=== PATIENT | male | born 1995 | race Caucasian/White ===

== ENCOUNTER → 2017-09-30 | Outpatient (CLI) | payer BC ==
[2017-10-01 13:35] LABS: Bordedella pertussis Not detected (Not detected)
== END | disposition home or self-care (01) ==
LOC: PEDOP 08:48
PROVIDERS: ATTEND Family Medicine
DX: R05 Cough (principal)
CPT/HCPCS: 87798; 99212

== ENCOUNTER 2017-10-26 09:24 | Day surgery (SDC) | payer BC ==
[2017-10-24 13:49] VITALS: BMI 28.1
[~2017-10-26 09:24] MED LIST: LACTATED RINGERS 1,000 ML IV SCH; LIDOCAINE 1% 20 ML VIAL (10MG/ML) FOR IV START INTRADERMA PRN
[2017-10-26 09:44] VITALS: RESP 16; TEMP 98.7
[2017-10-26 09:44] LABS: Glucose,Whole Blood 92 mg/dL (75-99)
[2017-10-26] MEDS ORDERED: LIDOCAINE 1% INJ 10MG/ML (20 ML MDV) ONE (10:57)
[2017-10-26] MEDS ORDERED: PROPOFOL 10 MG/ML 20 ML VIAL IV ONE (10:57)
--- NOTE | 2017-10-26 11:10 | P.GSHP ---
History of Present Illness H&P Date: 10/26/17 Chief Complaint: GERD This a 22-year-old male referred from Dr. Mariela mcleod. Patient is today for EGD. He's had issues with GERD. Past Medical History Past Medical History: GERD/Reflux Additional Past Medical History / Comment(s): cough since 1 yr,occas vomiting and abdominal pain,blood sugar runs high History of Any Multi-Drug Resistant Organisms: None Reported Past Surgical History: Orthopedic Surgery Additional Past Surgical History / Comment(s): RIGHT ANKLE ORIF WITH SCREWS, neck bx Past Anesthesia/Blood Transfusion Reactions: No Reported Reaction Smoking Status: Never smoker - Past Family History Father Family Medical History: Cancer, Diabetes Mellitus Additional Family Medical History / Comment(s): COLON Medications and Allergies Home Medications Medication Instructions Recorded Confirmed Type Levocetirizine Dihydrochloride 5 mg PO DAILY 10/24/17 10/24/17 History [Xyzal] Ranitidine HCl [Zantac] 300 mg PO DAILY 10/24/17 10/26/17 History Allergies Allergy/AdvReac Type Severity Reaction Status Date / Time No Known Allergies Allergy Verified 10/24/17 13:32 Surgical - Exam Vital Signs Temp Pulse Resp BP Pulse Ox 98.7 F 78 16 110/71 100 10/26/17 09:35 10/26/17 09:35 10/26/17 09:35 10/26/17 09:35 10/26/17 09:35 - General well developed, no distress - Eyes PERRL - ENT normal pinna - Neck no masses - Respiratory normal expansion - Cardiovascular Rhythm: regular - Abdomen Abdomen: soft, non tender Assessment and Plan Assessment: GERD. We'll perform EGD.
--- NOTE | 2017-10-26 11:19 | P.OP ---
Date of Procedure: 10/26/17 Preoperative Diagnosis: GERD Postoperative Diagnosis: Antral gastritis Large hiatal hernia Esophagitis Procedure(s) Performed: EGD Anesthesia: MAC Surgeon: Saqib Escobar Pathology: other (The antrum, esophagus) Condition: stable Disposition: PACU Description of Procedure: The patient's placed on the endoscopy table in the lateral position. He received IV sedation. The gastroscope placed oropharynx passed in the esophagus and into the stomach. Scope was placed through the pylorus. First and second portion of the duodenum appeared normal. The scope was then brought back the antrum and this appeared inflamed. A biopsies was performed. The scope was retroflexed and remainder of the stomach appeared normal. The GE junction was at 38 cm. There was a moderate to large hiatal hernia. There is evidence of esophagitis. The distal esophagus was biopsied. The proximal esophagus appeared normal. Scope was withdrawn
[2017-10-26 11:43] VITALS: BP 100/59; PULSE 80
== END 2017-10-26 12:28 | disposition home or self-care (01) ==
LOC: ORWHC2ENDO 09:24
PROVIDERS: ATTEND Surgery
DX: K29.50 Unspecified chronic gastritis without bleeding (principal); K21.0 Gastro-esophageal reflux disease with esophagitis; K44.9 Diaphragmatic hernia without obstruction or gangrene; R05 Cough; Z80.0 Family history of malignant neoplasm of digestive organs; Z79.899 Other long term (current) drug therapy
CPT/HCPCS: 88305; 88312; 88342; 43239; J2001; J2704

== ENCOUNTER → 2017-11-03 | Outpatient (CLI) | payer BC ==
[2017-11-03 14:49] LABS: Basophils % (A) 0 %; CH 32.3; CHCM 36.2; Eosinophils # (A) 0.1 k/uL (0-0.7); Eosinophils % (A) 1 %; HDW 2.79; HGB 16.5 gm/dL (13.0-17.5); Luc # (Auto) 0.16; Luc % (Auto) 2; Lymphocytes # (A) 2.3 k/uL (1.0-4.8); Lymphocytes % (A) 23 %; MCH 30.9 pg (25.0-35.0); MCHC 34.5 g/dL (31.0-37.0); MCV 89.6 fL (80.0-100.0); Mean Platelet Volume 6.8; Monocytes # (A) 0.4 k/uL (0-1.0); Monocytes % (A) 5 %; Neutrophils # (A) 6.8 k/uL (1.3-7.7); Neutrophils % (A) 70 %; RBC 5.36 m/uL (4.30-5.90); RDW 12.5 % (11.5-15.5); WBC 9.8 k/uL (4.0-11.0); WBC (Perox) 9.11
== END | disposition home or self-care (01) ==
LOC: LABPAT 13:17
PROVIDERS: ATTEND Surgery
DX: Z01.818 Encounter for other preprocedural examination (principal); Z01.812 Encounter for preprocedural laboratory examination; K21.0 Gastro-esophageal reflux disease with esophagitis
CPT/HCPCS: 36415; 85025; 93005

== ENCOUNTER 2017-11-11 10:10 | Inpatient (IN) | payer BC ==
[2017-11-02 13:41] VITALS: BMI 26.6
[~2017-11-11 10:10] MED LIST changes: +DEXAMETHASONE SOD PHOSPHATE 10 MG/ML 1 ML VIAL IV ONE; +HEPARIN SODIUM,PORCINE 5,000 UNIT/ML 1 ML VIAL SQ ONE; +HYDROmorphone 0.5 MG/0.5 ML SYRINGE IVP PRN; -LACTATED RINGERS 1,000 ML IV SCH; -LIDOCAINE 1% 20 ML VIAL (10MG/ML) FOR IV START INTRADERMA PRN; +MIDAZOLAM 2 MG/2 ML VIAL IV PRN; +ONDANSETRON 4 MG/2 ML VIAL IVP ONE; +ceFAZolin IN SWFI 2 GM/20 ML SYRINGE IVP ONE
[2017-11-11 11:31] VITALS: RESP 16
[2017-11-11] MEDS: LACTATED RINGERS 1,000 ML IV SCH (11:46)
[2017-11-11] MEDS ORDERED: LIDOCAINE 1% 20 ML VIAL (10MG/ML) FOR IV START INTRADERMA ONE (11:46)
--- NOTE | 2017-11-11 14:16 | P.GSHP ---
History of Present Illness H&P Date: 11/11/17 Chief Complaint: GERD The 22-year-old male with long-standing problems reflux esophagitis. MThe patient has had long-standing problems with reflux esophagitis. The patient underwent recent EGD is found have evidence of esophagitis. Patient has been well informed on the procedure of laparoscopic Micaela fundoplication. The patient is aware the risk of the conversion to the open procedure, risk of injury to the stomach, liver and spleen. The patient is also a risk of recurrent GERD and dysphagia symptoms. The patient understands there is a postoperative diet of full liquids for 2 weeks after surgery. Past Medical History Past Medical History: GERD/Reflux Additional Past Medical History / Comment(s): productive cough for 1 year , occas vomiting and abdominal pain, hiatal hernia, History of Any Multi-Drug Resistant Organisms: None Reported Past Surgical History: Orthopedic Surgery Additional Past Surgical History / Comment(s): RIGHT ANKLE ORIF WITH SCREWS, EGD , oral surgery Past Anesthesia/Blood Transfusion Reactions: No Reported Reaction Smoking Status: Never smoker - Past Family History Father Family Medical History: Cancer Additional Family Medical History / Comment(s): COLON Medications and Allergies Home Medications Medication Instructions Recorded Confirmed Type Levocetirizine Dihydrochloride 5 mg PO DAILY 10/24/17 11/02/17 History [Xyzal] Ranitidine HCl [Zantac] 300 mg PO DAILY 10/24/17 11/02/17 History Allergies Allergy/AdvReac Type Severity Reaction Status Date / Time No Known Allergies Allergy Verified 11/11/17 11:21 Surgical - Exam Vital Signs Temp Pulse Resp BP Pulse Ox 97.0 F L 81 16 124/70 99 11/11/17 11:30 11/11/17 11:30 11/11/17 11:30 11/11/17 11:30 11/11/17 11:30 - General well developed, no distress - Eyes PERRL - ENT normal pinna - Neck no masses - Respiratory normal expansion - Cardiovascular Rhythm: regular - Abdomen Abdomen: soft, non tender Assessment and Plan Assessment: GERD. We'll perform laparoscopic Micaela fundal plication.
[2017-11-11] MEDS ORDERED: LIDOCAINE 1% INJ 10MG/ML (20 ML MDV) ONE (14:47)
[2017-11-11] MEDS ORDERED: GLYCOPYRROLATE 0.2 MG/ML 2 ML VIAL ONE (14:47)
[2017-11-11] MEDS ORDERED: SUCCINYLCHOLINE CHLORIDE 100 MG/5 ML SYR IV ONE (14:47)
[2017-11-11] MEDS ORDERED: PROPOFOL 10 MG/ML 20 ML VIAL IV ONE (14:47)
[2017-11-11] MEDS ORDERED: HYDROmorphone (PF) 1 MG/ML ONE (14:47)
[2017-11-11] MEDS ORDERED: MIDAZOLAM 2 MG/2 ML VIAL ONE (14:47)
[2017-11-11] MEDS ORDERED: ESMOLOL 100 MG/10 ML VIAL ONE (14:47)
[2017-11-11] MEDS ORDERED: ROCURONIUM BROMIDE 10 MG/ML 10 ML VIAL IV ONE (14:47)
[2017-11-11] MEDS ORDERED: fentaNYL (PF) 50 MCG/ML 2 ML AMP ONE (14:47)
[2017-11-11] MEDS ORDERED: NEOSTIGMINE 1 MG/ML 10 ML VIAL ONE (14:47)
[2017-11-11] MEDS ORDERED: BUPIVACAINE (PF) 0.25% 30 ML VIAL SQ ONE (15:06)
[2017-11-11] MEDS ORDERED: LACTATED RINGERS 1,000 ML IV ONE (15:31)
[2017-11-11] MEDS ORDERED: HYDROmorphone 2 MG/ML 1 ML SYRINGE IVP PRN (15:32)
[2017-11-11] MEDS ORDERED: ONDANSETRON 4 MG/2 ML VIAL IVP PRN (15:32)
--- NOTE | 2017-11-11 15:38 | P.OP ---
Date of Procedure: 11/11/17 Preoperative Diagnosis: GERD Postoperative Diagnosis: GERD Hiatal hernia Procedure(s) Performed: Operative scopic Micaela fundoplication Anesthesia: LEDA Surgeon: Saqib Escobar Estimated Blood Loss (ml): 5 Pathology: none sent Condition: stable Disposition: PACU Description of Procedure: HarThe patient was placed on the operating table in the supine position. The patient received general anesthesia. And was placed in dorsal lithotomy position. The patient was prepped and draped in the usual sterile fashion. The skin incision sites were anesthetized with 1% local Xylocaine. The skin was incised in the left periumbilical area and then using a blade less 5 mm trocar under direct visualization panel cavity was entered. After adequate insufflation the laparoscope was then placed into the peritoneal cavity. Next a 5 mm trochars placed in the right epigastric position. Another 5 millimeter trocar the right lateral position. Another 5 millimeter trocar in the left lateral position a 5 mm trocar is placed in the left epigastric position. And then the initial 5 mm trocar was exchanged for a 10 mm trocar. The left lateral lobe liver was retracted. The hernia was seen. The crural defect was then dissected using the Harmonic scissors device. A 360 crural dissection was performed the esophagus stomach was reduced back into the peritoneal Cavity. The crural defect was then closed using 2-0 Ethibond suture. Next the fundus of the stomach was mobilized using the [place] scissors device. and then a 58-Hebrew bougie dilator was placed oropharynx passed into the esophagus and stomach the fundal plication wrap was then performed by grasping the fundus posteriorly and bringing it around the esophagus and stomach fundoplication was then performed using 2-0 Ethibond suture. Care was taken that the fundal location rested over top of the intra-abdominal esophagus. There was no injury seen to the stomach or esophagus. The dilator was then withdrawn. The abdomen was irrigated there is no bleeding seen. The trochars were then withdrawn and then skin incision sites were closed using 3-0 Monocryl suture Steri-Strips are applied. Patient thought procedure well and sent to recovery room in stable condition.
[2017-11-11] MEDS ORDERED: MORPHINE SULFATE 5 MG/ML SYRINGE IVP ONE (16:35)
[2017-11-11] MEDS: METOCLOPRAMIDE 5 MG/ML 2 ML VIAL IVP SCH ×2 (18:44→23:49)
[2017-11-11] MEDS: MORPHINE SULFATE 5 MG/ML SYRINGE IVP PRN ×2 (18:45→22:38)
[2017-11-11] MEDS: FAMOTIDINE 20 MG/2 ML VIAL IV SCH (20:47)
[2017-11-11] MEDS: D5-0.45% NACL WITH KCL 20MEQ/L 1,000 ML IV SCH (20:47)
[2017-11-12] MEDS: LACTATED RINGERS 1,000 ML IV SCH (01:43)
[2017-11-12 03:08] VITALS: BP 135/83; PULSE 81; TEMP 98.5
[2017-11-12] MEDS: MORPHINE SULFATE 5 MG/ML SYRINGE IVP PRN ×2 (03:34→08:25)
[2017-11-12] MEDS: D5-0.45% NACL WITH KCL 20MEQ/L 1,000 ML IV SCH (03:54)
[2017-11-12] MEDS: METOCLOPRAMIDE 5 MG/ML 2 ML VIAL IVP SCH ×2 (05:56→11:21)
--- NOTE | 2017-11-12 08:08 | FL ---
EXAMINATION TYPE: FL esophagus cervic/pharynx , DATE OF EXAM ORDERED: 11/12/2017 HISTORY: Postop Saleem fundoplication. COMPARISON: None. FINDINGS: The patient swallowed contrast with ease. There was prompt egress from the esophagus into the stomach. There is no evidence of extravasation. There is a small amount of free air. The ligament of Treitz is in the normal location. IMPRESSION: STATUS POST SALEEM FUNDOPLICATION
[2017-11-12] MEDS: FAMOTIDINE 20 MG/2 ML VIAL IV SCH (08:24)
[2017-11-12] MEDS ORDERED: ENOXAPARIN 40 MG/0.4 ML SYRINGE SQ SCH (09:00)
[2017-11-12] MEDS ORDERED: HYDROcodone/APAP 7.5-325MG 1 EACH TAB PO PRN (10:35)
--- NOTE | 2017-11-12 11:03 | P.DS ---
Providers Date of admission: 11/11/17 10:10 Expected date of discharge: 11/12/17 Attending physician: Saqib Escobar Consults: 11/11/17 15:32 Consult Physician Routine Consulting Provider: Blanca Zamarripa Consult Reason/Comments: Management Do you want consulting provider notified?: Yes Primary care physician: [facility] Course: This a 22-year-old male who underwent laparoscopic Micaela fundoplication yesterday. Patient is doing quite well. His incision sites are clean and intact. His abdomen soft nontender. Procedures: Laparoscopic Micaela fundal plication Patient Condition at Discharge: Good Plan - Discharge Summary Discharge Rx Participant: No New Discharge Prescriptions: New Docusate [Colace] 100 mg PO BID #20 capsule HYDROcodone/APAP 7.5-325MG [Roland 7.5] 1 each PO Q4H PRN #30 tab PRN Reason: Pain No Action Levocetirizine Dihydrochloride [Xyzal] 5 mg PO DAILY Ranitidine HCl [Zantac] 300 mg PO DAILY Discharge Medication List Levocetirizine Dihydrochloride [Xyzal] 5 mg PO DAILY 10/24/17 [History] Ranitidine HCl [Zantac] 300 mg PO DAILY 10/24/17 [History] Docusate [Colace] 100 mg PO BID #20 capsule 11/12/17 [Rx] HYDROcodone/APAP 7.5-325MG [Roland 7.5] 1 each PO Q4H PRN #30 tab 11/12/17 [Rx] Follow up Appointment(s)/Referral(s): Saqib Escobar MD [STAFF PHYSICIAN] - 2 Weeks Discharge Disposition: HOME SELF-CARE
== END 2017-11-12 13:57 | disposition home or self-care (01) | DRG 328 ==
LOC: 2ORMAIN 10:10 → 3SUR 15:52
PROVIDERS: ADMIT Surgery; ATTEND Surgery
PROC: 0DV44ZZ Restriction of Esophagogastric Junction, Percutaneous Endoscopic Approach (ICD-10-PCS; principal; 2017-11-11 13:15)
DX: K21.0 Gastro-esophageal reflux disease with esophagitis (principal); K44.9 Diaphragmatic hernia without obstruction or gangrene; Z80.0 Family history of malignant neoplasm of digestive organs; Z79.899 Other long term (current) drug therapy
CPT/HCPCS: 74210

== ENCOUNTER → 2017-12-23 | Outpatient (CLI) | payer BC ==
--- NOTE | 2017-12-24 21:58 | FL ---
EXAMINATION: Cervical and Thoracic Esophagram DATE OF EXAM: 12/23/2017 CLINICAL INDICATION: 22-year-old male with hiatal hernia surgery on 11/11/2017, patient with sharp righ t upper quadrant pain, 15 pound weight loss since surgery, and sensation of food sticking in the uppe r chest and feeling nauseous. COMPARISON: 11/12/2017 Total Fluoroscopy Time: 1.3 minutes Total images: 28 (radiation dose was decreased by utilizing last image hold save screens) FINDINGS: The swallowing mechanism is normal and hypopharyngeal anatomy is preserved. The cervical and thoracic portions have a normal course and caliber and normal motility. The mucosa is normal and no persistent filling defect is encountered. There are postsurgical changes of Micaela fundoplication. No evidence for breakdown of the wrap and no recurrent hernia or herniation of the wrap. Note the there was significant pooling of ingested contrast in the lower esophagus after the patient swallowed only 1 ounce of barium. It took approximately 45 seconds for this to clear. Ingestion of approximately 1 ounce of thin barium showed better transit but demonstrated some degree of narrowing at the GE junction. IMPRESSION: Relative narrowing at the GE junction status post Micaela fundoplication. The patient swallowed a tota l of 2 ounces of contrast. There was faster transit of thin barium. The thick barium pooled in the lo wer esophagus with only 1 ounce ingested and it took approximately 45 seconds for it to clear.
== END | disposition home or self-care (01) ==
LOC: RADFLWHC 10:47
PROVIDERS: ATTEND Surgery
DX: K22.2 Esophageal obstruction (principal); K21.9 Gastro-esophageal reflux disease without esophagitis; Z98.890 Other specified postprocedural states
CPT/HCPCS: 74220

== ENCOUNTER 2017-12-30 13:17 | Day surgery (SDC) | payer BC ==
[2017-12-28 10:08] VITALS: BMI 28.1
[2017-12-30 13:41] VITALS: RESP 18; TEMP 98.9
[2017-12-30] MEDS: LACTATED RINGERS 1,000 ML IV SCH ×2 (13:57→14:24)
--- NOTE | 2017-12-30 14:27 | P.GSHP ---
History of Present Illness H&P Date: 12/30/17 Chief Complaint: Dysphagia This is a 22-year-old male who has had complaints of dysphagia. Patient had a recent Micaela fundal plication. He presents today for EGD with possible balloon dilatation of the GE junction. Past Medical History Past Medical History: GERD/Reflux Additional Past Medical History / Comment(s): productive cough for 1 year , occas vomiting and abdominal pain, hiatal hernia, History of Any Multi-Drug Resistant Organisms: None Reported Past Surgical History: Orthopedic Surgery Additional Past Surgical History / Comment(s): RIGHT ANKLE ORIF WITH SCREWS, EGD , oral surgery Past Anesthesia/Blood Transfusion Reactions: No Reported Reaction Smoking Status: Never smoker - Past Family History Father Family Medical History: Cancer Additional Family Medical History / Comment(s): COLON Medications and Allergies Home Medications Medication Instructions Recorded Confirmed Type No Known Home Medications [No 12/28/17 12/30/17 History Known Home Medications] Allergies Allergy/AdvReac Type Severity Reaction Status Date / Time No Known Allergies Allergy Verified 12/30/17 13:41 Surgical - Exam Vital Signs Temp Pulse Resp BP Pulse Ox 98.9 F 84 18 110/70 95 12/30/17 13:40 12/30/17 13:40 12/30/17 13:40 12/30/17 13:40 12/30/17 13:40 - General well developed, no distress - Eyes PERRL - ENT normal pinna - Neck no masses - Respiratory normal expansion - Cardiovascular Rhythm: regular - Abdomen Abdomen: soft, non tender Assessment and Plan Assessment: Dysphagia. We'll perform EGD with possible balloon dilatation of GE junction.
[2017-12-30] MEDS ORDERED: PROPOFOL 10 MG/ML 20 ML VIAL IV ONE (14:29)
--- NOTE | 2017-12-30 14:38 | P.OP ---
Date of Procedure: 12/30/17 Preoperative Diagnosis: Dysphagia Postoperative Diagnosis: Dysphagia Procedure(s) Performed: EGD with balloon dilatation Anesthesia: MAC Surgeon: Saqib Escobar Pathology: none sent Condition: stable Disposition: PACU Description of Procedure: The patient's placed on the endoscopy table lateral position. He received IV sedation. The gastroscope placed oropharynx passed in the esophagus and stomach. Scope was then placed through the pylorus. The first and second portion of the duodenum appeared normal. Scope was then brought back the antrum this appeared normal. Scope retroflexed there is no evidence of a hiatal hernia. Due to the patient's symptoms of dysphagia a 20 mm balloon was held across the GE junction. This on position for 3 minutes. There is known to any obstruction. The scope was withdrawn. The distal esophagus and proximal esophagus appeared normal. Scope withdrawn for patient.
[2017-12-30 15:26] VITALS: BP 110/57; PULSE 69
== END 2017-12-30 15:30 | disposition home or self-care (01) ==
LOC: ORWHC2ENDO 13:17
PROVIDERS: ATTEND Surgery
DX: R13.10 Dysphagia, unspecified (principal); E66.9 Obesity, unspecified; Z68.28 Body mass index [BMI] 28.0-28.9, adult
CPT/HCPCS: 43249; J2704; C1726